=== PATIENT | female | born 1970 | race Caucasian/White ===

== ENCOUNTER 2023-05-27 07:22 | Outpatient (CLI) | payer OTHER, SELFPAY | END 2023-05-27 07:23 | disposition home or self-care (01) | LOC: NFLDREF 05-28 11:34 | PROVIDERS: Visit Provider Family Medicine | DX: R39.89 Other symptoms and signs involving the genitourinary system (principal); N39.0 Urinary tract infection, site not specified | CPT/HCPCS: 87086 ==